=== PATIENT | female | born 1995 | race Caucasian/White ===

== ENCOUNTER → 2023-08-10 10:49 | Outpatient (CLI) | payer OTHER, SELFPAY ==
[2023-08-10 11:27] LABS: Add Manual Diff / Slide Review NO; Basophils Absolute Auto 0 /uL (0-100); Basophils Percent Auto 0.2 % (0-2); Eosinophils Absolute Auto 100 /uL (0-450); Eosinophils Percent Auto 1.5 % (2-4); Hematocrit 35.8 % (36-46); Hemoglobin 12.5 g/dL (12.0-16.0); Lymphocytes Absolute Auto 1400 /uL (1100-4500); Lymphocytes Percent Auto 19.3 % (25-40); Mean Corpuscular Hemoglobin 31.4 PG (26-34); Mean Corpuscular Volume 89.9 fL (80-100); Monocytes Absolute Auto 800 /uL (0-900); Monocytes Percent Auto 10.8 % (3-14); Neutrophils Absolute Auto 4900 /uL (1500-7000); Neutrophils Percent Auto 68.2 % (50-75); Platelet Count 332 X10^3/uL (150-400); Red Blood Cell Count 3.98 X10^6/uL (4.0-5.2); Red Cell Distribution Width 12.8 % (11.6-14.8); White Blood Cell Count 7.2 X10^3/uL (4.5-11.0)
[2023-08-10 13:05] LABS: Appearance Urine UA CLEAR; Bilirubin Urine UA NEGATIVE (NEGATIVE); Color Urine UA YELLOW; Glucose Urine UA NEGATIVE (Negative); Ketones Urine UA NEGATIVE (NEGATIVE); Leukocyte Esterase Urine UA NEGATIVE (NEGATIVE); Nitrite Urine UA NEGATIVE (Negative); Occult Blood Urine UA NEGATIVE (Negative); Protein Urine UA NEGATIVE (Negative); Urobilinogen Urine UA 0.2 E.U./dL (0.2)
[2023-08-10 13:13] LABS: pH Urine UA 6.5 (4.5-8.0)
[2023-08-10 14:40] LABS: Urine N gonorrhoeae NOT DETECTED
[2023-08-10 14:41] LABS: Urine Chlamydia NOT DETECTED
[2023-08-10 20:59] LABS: HIV 1 & 2 Ab/Ag 4th Gen Combo NEGATIVE (NEGATIVE); Hepatitis B Surface Antigen NEGATIVE s/c (NEGATIVE)
[2023-08-11 05:47] LABS: RPR Screen Non Reactive (Non Reactive)
[2023-08-11 05:58] LABS: Miscellaneous to LabCorp NATERA
[2023-08-11 08:55] LABS: Varicella IgG Antibody 594 index (Immune >165)
[2023-08-12 16:25] LABS: Hep C Virus Ab w/Reflex Quant NEGATIVE s/c (NEGATIVE)
== END ==
LOC: LAB 10:52
PROVIDERS: Referring Provider Student in an Organized Health Care Education/Training Program; Visit Provider Student in an Organized Health Care Education/Training Program
DX: Z13.79 Encounter for other screening for genetic and chromosomal anomalies (principal); Z36.0 Encounter for antenatal screening for chromosomal anomalies; Z31.438 Encounter for other genetic testing of female for procreative management; Z34.00 Encounter for supervision of normal first pregnancy, unspecified trimester; Z34.01 Encounter for supervision of normal first pregnancy, first trimester
CPT/HCPCS: 36415; 80055; 81003; 86787; 86803; 86850; 86900; 86901; 87086; 87389; 87491; 87591

== ENCOUNTER → 2023-10-20 15:09 | Outpatient (CLI) | payer OTHER, SELFPAY ==
--- NOTE | 2023-10-20 15:10 | DI.US.S_ITS ---
PROCEDURE: US OB >= 14 WEEKS FETUS INDICATIONS: ANATOMY OUTSIDE/PRIOR DATING DATA: Last menstrual period (LMP): 05/30/2023. LMP-based estimated date of delivery (RAMOS): 03/05/2024. TECHNIQUE: Real-time scanning was performed of the fetus, with image documentation and biometric measurements. COMPARISON: [facility], US, US OB < 14 WEEKS + OB TRANSVAG, 07/18/2023, 22:20. FINDINGS: General: A single living intrauterine gestation is present. Presentation: Vertex. Placenta: Placental position is anterior , without previa. Amniotic fluid index: 9.4 cm, normal range is 5-24 cm. heart rate: 152 beats per minute. Maternal cervical canal: 3.8 cm long. Normal lower limit is 2.5 cm. biometrics: Biparietal diameter: 4.9 cm, 20 weeks and 5 days Head circumference: 17.8 cm, 20 weeks and 2 days Abdominal circumference: 17.8 cm, 22 weeks and 5 days Femur length: 3.5 cm, 21 weeks and 1 day Clinically estimated gestational age: 20 weeks and 3 days Composite gestational age from present scan: 21 weeks and 2 days Estimated weight and percentile: 447 g, 97th percentile Anatomic survey: Neuro: Ventricles are non-dilated at less than 10 mm. Cisterna magna is normal at 3-11 mm. Cerebellum is normal in size and morphology. Nuchal skin fold: Not well seen Face: Nose and lips, facial profile are normal. Spine: Not well seen Heart: 4-chambered heart is present, with normal ventricular outflow tracts. Diaphragm: Diaphragm is intact. Stomach: Left-sided stomach is present. Kidneys: No hydronephrosis. Normal is less than 5 mm in 2nd trimester, less than 7 mm in 3rd trimester. Cord: 3-vessel cord has orthotopic insertion. Bladder: Normal in size. Extremities: All 4 extremities identified. IMPRESSION: Living intrauterine gestation at 20 weeks and 3 days. EFW at the 97th percentile, larger than expected. Normal BRIE. Spine and nuchal skin fold were not well seen. Other parts of the anatomic survey within normal limits. Consider short interval follow-up. Dictated by: Matt Oneal M.D. on 10/21/2023 at 11:01 Approved by: Matt Oneal M.D. on 10/21/2023 at 11:06
== END ==
PROVIDERS: Referring Provider Family Medicine; Visit Provider Family Medicine
DX: Z34.02 Encounter for supervision of normal first pregnancy, second trimester (principal); Z3A.20 20 weeks gestation of pregnancy
CPT/HCPCS: 76811

== ENCOUNTER → 2023-11-11 08:52 | Outpatient (CLI) | payer OTHER, SELFPAY ==
--- NOTE | 2023-11-11 08:54 | DI.US.S_ITS ---
PROCEDURE: US OB FOLLOW UP INDICATIONS: Excessive growth affecting management of pre OUTSIDE/PRIOR DATING DATA: Last menstrual period (LMP): May 30, 2023. LMP-based estimated date of delivery (RAMOS): March 05, 2024. TECHNIQUE: Real-time scanning was performed of the fetus, with image documentation and biometric measurements. Endovaginal scanning: Not performed COMPARISON: [facility], , OB >= 14 WEEKS FETUS, 10/20/2023, 16:17. FINDINGS: General: A single living intrauterine gestation is present. Presentation: Transverse. Placenta: Placental position is anterior , without previa. Normal >2 cm. Low lying is <2 cm to the edge. Previa covers the internal os. Amniotic fluid index: 15.4 cm, normal range is 5-24 cm. Single deepest vertical pocket is 5.7 cm. heart rate: 132 beats per minute. Maternal cervical canal: 4.9 cm long. Normal lower limit is 2.5 cm. biometrics: Biparietal diameter: 5.9 cm, 24 weeks and 1 day Head circumference: 20.9 cm, 23 weeks and 0 days Abdominal circumference: 19.9 cm, 24 weeks and 4 days Femur length: 4.2 cm, 23 weeks and 5 days Clinically estimated gestational age: 23 weeks and 4 days Composite gestational age from present scan: 23 weeks and 6 days Estimated weight and percentile: 657 g, 66th percentile Other: Not applicable. IMPRESSION: Single living intrauterine gestation with estimated sonographic gestational age of approximately 23 weeks and 6 days. Estimated weight of approximately 657 g which correlates with the 66th percentile based off gestational age. Normal interval growth has occurred. We strive to produce accurate, complete, and clear reports of imaging services. To assist us in improving patient care, this report was composed using standard report templates and voice recognition software. Therefore, it may contain abnormal punctuation, insertions and/or omissions. Occasional wrong-word or sound-alike substitutions may occur. Though we review the report and make efforts to correct it, we do recommend that the report be read carefully in proper context to recognize any text inaccuracies. Dictated by: Franklin Fajardo M.D. on 11/11/2023 at 11:13 Approved by: Franklin Fajardo M.D. on 11/11/2023 at 11:17
== END ==
LOC: US 08:53
PROVIDERS: Referring Provider Student in an Organized Health Care Education/Training Program; Visit Provider Student in an Organized Health Care Education/Training Program
DX: Z3A.23 23 weeks gestation of pregnancy; O36.62X0 Maternal care for excessive fetal growth, second trimester, not applicable or unspecified
CPT/HCPCS: 76815

== ENCOUNTER → 2023-12-01 11:08 | Outpatient (CLI) | payer OTHER, SELFPAY ==
[2023-12-01 13:28] LABS: Hematocrit 35.4 % (36-46); Hemoglobin 12.5 g/dL (12.0-16.0)
[2023-12-01 13:52] LABS: GTT (PREG) 1 Hour PP 50gm Dose 66 mg/dL (76-139)
== END ==
LOC: LAB 11:09
PROVIDERS: Referring Provider Student in an Organized Health Care Education/Training Program; Visit Provider Student in an Organized Health Care Education/Training Program
DX: Z34.92 Encounter for supervision of normal pregnancy, unspecified, second trimester (principal); Z3A.26 26 weeks gestation of pregnancy
CPT/HCPCS: 36415; 82950; 85014; 85018

== ENCOUNTER → 2024-01-19 15:29 | Outpatient (CLI) | payer OTHER, SELFPAY ==
--- NOTE | 2024-01-19 15:30 | DI.US.S_ITS ---
PROCEDURE: US OB >= 14 WEEKS FETUS INDICATIONS: Growth US OUTSIDE/PRIOR DATING DATA: Last menstrual period (LMP): 05/30/2023. LMP-based estimated date of delivery (RAMOS): 03/05/2024. First dating scan (date and location): Unknown. Estimated date of delivery (RAMOS) from first dating scan: Unknown. The calculations are made using the working RAMOS of 02/28/2024. TECHNIQUE: Real-time scanning was performed of the fetus, with image documentation and biometric measurements. Endovaginal scanning: No COMPARISON: [facility], , US OB >= 14 WEEKS FETUS, 10/20/2023, 16:17. FINDINGS: General: A single living intrauterine gestation is present. Presentation: Vertex. Placenta: Placental position is anterior , without previa. Amniotic fluid index: 15.0 cm, normal range is 5-24 cm. Single deepest vertical pocket is 5.7 cm. heart rate: 128 beats per minute. Maternal cervical canal: 4.5 cm long. Normal lower limit is 2.5 cm. biometrics: Biparietal diameter: 8.5 cm, 34 week 1 day Head circumference: 31.8 cm, 35 week 6 day Abdominal circumference: 31.3 cm, 38 week 2 day Femur length: 6.7 cm, 34 week 3 day Clinically estimated gestational age: 33 week 3 day Composite gestational age from present scan: 35 week 5 day Anatomic survey: Neuro: Ventricles are non-dilated at less than 10 mm. Cisterna magna is normal at 3-11 mm. Cerebellum is normal in size and morphology. Nuchal skin fold: Normal at less than 6 mm between 14-21 weeks gestational age. Face: Nose and lips, facial profile are normal. Spine: No evidence for spina bifida. Heart: 4-chambered heart is present, with normal ventricular outflow tracts. Diaphragm: Diaphragm is intact. Stomach: Left-sided stomach is present. Kidneys: No hydronephrosis. Normal is less than 5 mm in 2nd trimester, less than 7 mm in 3rd trimester. Cord: 3-vessel cord has orthotopic insertion. Bladder: Normal in size. Extremities: All 4 extremities identified. IMPRESSION: Single live intrauterine consistent with 35 week 5 day gestation by current ultrasound Estimated weight 2973 g, 99th percentile Approved by: Joao Moore M.D. on 01/20/2024 at 19:49
== END ==
LOC: US 15:30
PROVIDERS: Referring Provider Student in an Organized Health Care Education/Training Program; Visit Provider Student in an Organized Health Care Education/Training Program
DX: O26.13 Low weight gain in pregnancy, third trimester (principal); Z3A.35 35 weeks gestation of pregnancy
CPT/HCPCS: 76811

== ENCOUNTER → 2024-02-09 13:46 | Outpatient (CLI) | payer OTHER, SELFPAY ==
--- NOTE | 2024-02-09 13:47 | DI.US.S_ITS ---
PROCEDURE: US OB >= 14 WEEKS FETUS INDICATIONS: GROWTH US OUTSIDE/PRIOR DATING DATA: Last menstrual period (LMP): 05/30/2023. LMP-based estimated date of delivery (RAMOS): 03/05/2024. TECHNIQUE: Real-time scanning was performed of the fetus, with image documentation and biometric measurements. Endovaginal scanning: Not performed COMPARISON: [facility], US, US OB >= 14 WEEKS FETUS, 01/19/2024, 16:22. FINDINGS: General: A single living intrauterine gestation is present. Presentation: Vertex. Placenta: Placental position is anterior , without previa. Amniotic fluid index: 19.4 cm, normal range is 5-24 cm. Single deepest vertical pocket is 8.3 cm. heart rate: 150 beats per minute. Maternal cervical canal: 4.5 cm long. Normal lower limit is 2.5 cm. biometrics: Biparietal diameter: 8.8 centimeters, 35 weeks 4 days Head circumference: 31.4 centimeters, 35 weeks 1 day Abdominal circumference: 33.6 centimeters, 37 weeks 4 days Femur length: 7.1 centimeters, 36 weeks 3 days Clinically estimated gestational age: 36 weeks 3 days Composite gestational age from present scan: 36 weeks 1 day Estimated weight and percentile: 3022 grams, sixty-two percentile IMPRESSION: Single living intrauterine at thirty-six weeks 3 days, RAMOS 03/05/2024. Estimated weight of 3022 grams, 62 percentile. We strive to produce accurate, complete, and clear reports of imaging services. To assist us in improving patient care, this report was composed using standard report templates and voice recognition software. Therefore, it may contain abnormal punctuation, insertions and/or omissions. Occasional wrong-word or sound-alike substitutions may occur. Though we review the report and make efforts to correct it, we do recommend that the report be read carefully in proper context to recognize any text inaccuracies. Dictated by: Aly Mckeon M.D. on 02/10/2024 at 10:43 Approved by: Aly Mckeon M.D. on 02/10/2024 at 10:46
== END ==
PROVIDERS: Referring Provider Student in an Organized Health Care Education/Training Program; Visit Provider Student in an Organized Health Care Education/Training Program
DX: Z34.93 Encounter for supervision of normal pregnancy, unspecified, third trimester (principal); Z3A.36 36 weeks gestation of pregnancy
CPT/HCPCS: 76811

== ENCOUNTER → 2024-02-10 15:46 | Outpatient (CLI) | payer OTHER, SELFPAY ==
[2024-02-11 14:52] LABS: Strep Grp B PCR NEG for Grp B Strep
== END ==
PROVIDERS: Visit Provider Student in an Organized Health Care Education/Training Program
DX: Z34.90 Encounter for supervision of normal pregnancy, unspecified, unspecified trimester (principal); Z3A.36 36 weeks gestation of pregnancy
CPT/HCPCS: 87653

== ENCOUNTER 2024-02-27 07:59 | Outpatient (CLI) | payer OTHER, SELFPAY | END 2024-02-27 08:33 | disposition home or self-care (01) | LOC: OB 02-28 13:37 | PROVIDERS: Referring Provider Obstetrics & Gynecology; Visit Provider Obstetrics & Gynecology | DX: O36.8130 Decreased fetal movements, third trimester, not applicable or unspecified (principal); Z3A.39 39 weeks gestation of pregnancy | CPT/HCPCS: 59025; G0378; G0379 ==

== ENCOUNTER 2024-03-07 07:35 | Inpatient (IN) | payer OTHER, SELFPAY ==
--- NOTE | 2024-03-07 08:14 | PM.OBHP.IH.1 ---
OB HPI Date/Time Date of admission: 03/07/24 Date Patient Seen: 03/07/24 Time Patient Seen: 07:45 History of Present Condition Chief complaint: labor RAMOS Calculator Estimated Delivery Date Method Current WG Current Estimate 03/05/24 LMP (Certain) 40w 2d : 1 Para: 0 Narrative: Patient began having painful contractions at 3am. Water broke around 7am. Nico every 3-5 minutes. care: good care Dating criteria OB: LMP confirmed by 1st trimester US Ultrasounds: normal 1st trimester US and normal mid trimester US Obstetrical complications: none Medical complications OB: none Preadmission Labs Last OB Lab Results: Blood Type O Positive 08/10/23 11:03 Antibody Screen Negative 08/10/23 11:03 Hct 35.4 % (36-46) L 12/01/23 12:18 Hgb 12.5 g/dL (12.0-16.0) 12/01/23 12:18 Hep Bs Antigen Negative s/c (NEGATIVE) 08/10/23 11:03 Hepatitis C Antibody Negative s/c (NEGATIVE) 08/10/23 11:03 Rubella Antibody IU/mL (>15) 08/10/23 11:03 VZV IgG Antibody 594 index (Immune >165) 08/10/23 11:03 Glucose 1 Hr 50 gm 66 mg/dL (76-139) L 12/01/23 12:18 Group B Strep (PCR) Neg for grp b strep 02/10/24 16:30 Glucose Tolerance Testin hr Genetic Screens: Cell-free DNA: Normal Evaluation Evaluation Baseline heart rate: 135 Variability: Average (6-10) monitor accelerations: Present Monitor Decelerations: Absent Contraction Frequency (minutes): 3 Uterine Contraction Intensity: Moderate Category of Tracing: Reactive Status: Category l Dilation (cm): 2 Effacement (%): 80 Dilation: 1-2 cm Effacement: >/=80% station: -3 Non-invasive Membranes Rupture Test: positive [facility] 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/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) Wrist fracture Surgical History (Updated 07/06/23 @ 11:23 by Daisy Hardin RN) No pertinent past surgical history Family History (Updated 08/07/23 @ 21:12 by Rosie Lomeli) Grandfather Lung cancer Grandmother Lung cancer Smoker Grandmother Osteoporosis Stroke Social History marital status: number of children: 0 household members: spouse lives independently: Yes caregiver/support person: Yes housing: house pets and animals: Yes (2 cats, aware of precautions) education level: college occupational status: employed current occupational exposures/hazards: No special mana needs: No travel history: recent seatbelt use: always helmet use: Yes water heater temp set < 120 deg: Yes working smoke detector in home: Yes fire extinguisher in home: Yes carbon monox detector in home: Yes firearms in home: Yes firearms unloaded and locked: Yes do you feel safe at home: Yes Smoking Status: Never smoker second hand exposure: No alcohol intake: former substance use type: does not use during the past year weight has: remained stable well-balanced diet: daily or most days daily servings fruits/ve-4 caffeine: Yes (AM cup coffee) Type(s) of exercise: aerobic, weight lifting and running frequency: 3-4 times per week Meds Home Medications and Allergies Home Medications Medication Instructions Recorded Confirmed Type vitamin-ferrous sulfate tab PO 07/06/23 03/02/24 History 27 mg iron-folic acid 0.8 mg tablet doxylamine succinate 25 mg tablet 25 mg PO BEDTIME PRN sleep #30 tabs 09/01/23 03/02/24 Rx (Unisom (doxylamine)) Allergies Allergy/AdvReac Type Severity Reaction Status Date / Time No Known Drug Allergies Allergy Unverified 03/02/24 16:28 Review of Systems Review of Systems ROS: Yes All systems reviewed with the patient and are negative except as otherwise documented OB Exam Vital signs Blood Pressure: 123/85 Pulse Rate: 98 Temperature: 36.3 F Assessment and Plan Assessment and Plan Assessment and Plan narrative: 28 yo G1 here at 40w2d presenting with painful contractions and rupture of membranes. Amnisure positive. Contractions every 3 minutes. 2/80/-3. GBS neg. Uncomplicated . -admit for labor -anticipate Time-Based Coding :: 30 spent with patient and on the chart (including review of chart, obtaining history, exam, reviewing outside data, placing orders, documenting exam and treatment plan, and counseling patient) on 03/07.
[2024-03-07 08:22] VITALS: BP 123/85; PULSE 98; TEMP 2.4; TEMP 36.3
[2024-03-07 10:06] LABS: Add Manual Diff / Slide Review NO; Basophils Absolute Auto 100 /uL (0-100); Basophils Percent Auto 0.5 % (0-2); Eosinophils Absolute Auto 100 /uL (0-450); Eosinophils Percent Auto 0.5 % (2-4); Hematocrit 36.3 % (36-46); Hemoglobin 12.6 g/dL (12.0-16.0); Lymphocytes Absolute Auto 1300 /uL (1100-4500); Lymphocytes Percent Auto 11.4 % (25-40); Mean Corpuscular HGB Conc 34.6 % (30-36); Mean Corpuscular Hemoglobin 31.9 PG (26-34); Mean Corpuscular Volume 92.1 fL (80-100); Monocytes Absolute Auto 900 /uL (0-900); Monocytes Percent Auto 7.6 % (3-14); Neutrophils Absolute Auto 9000 /uL (1500-7000); Platelet Count 249 X10^3/uL (150-400); Red Blood Cell Count 3.94 X10^6/uL (4.0-5.2); Red Cell Distribution Width 13.4 % (11.6-14.8); White Blood Cell Count 11.3 X10^3/uL (4.5-11.0)
[2024-03-07 11:24] VITALS: BP 123/85
[2024-03-07] MEDS: CALCIUM CARBONATE 500 MG TAB 1000 MG PO ×2 (13:28→17:39)
[2024-03-07] MEDS: LACTATED RINGERS 1,000 ML 100 ML IV ×2 (15:14→16:04)
--- NOTE | 2024-03-07 16:26 | P.PCN_ITS ---
Regional Block Pre-procedure Procedure: Continuous Lumbar Epidural for L&D (with dural puncture and intrathecal injection) Attending OB provider: Melinda Lu PM/ROS narrative: 28yo at 40 weeks 2 days in labor with ruptured membranes requesting epidura l. See anesthesia pre-evaluation for further details. ASA Class: II Labs: Hct 36.3 % (36-46) 03/07/24 09:45 Plt Count 249 X10^3/uL (150-400) 03/07/24 09:45 Medications: Current Medications Generic Name Dose Route Start Last Admin Trade Name Freq PRN Reason Stop Dose Admin Calcium Carbonate 1,000 mg 03/07/24 13:04 03/07/24 13:28 Calcium Carbonate 500 Mg Tab PO 1,000 mg Q4HR PRN Administration Dyspepsia Carboprost Tromethamine 250 mcg 03/07/24 08:09 Carboprost 250 Mcg/Ml Ampul IM Q90M PRN Bleeding Diphenhydramine HCl 25 mg 03/07/24 16:24 Diphenhydramine 50 Mg/Ml Vial IV Q10M PRN Pruritis Ephedrine Sulfate 10 mg 03/07/24 16:24 Ephedrine 50 Mg/Ml Vial IV Q5M PRN Blood pressure decrease more than 20% of baseline. Fentanyl 50 mcg 03/07/24 08:09 Fentanyl 100 Mcg/2 Ml Inj IV Q1H PRN Pain, Moderate (4-6) Lactated Ringer's 1,000 mls @ 100 mls/hr 03/07/24 08:15 03/07/24 16:04 Lactated Ringers IV 03/07/24 18:14 100 mls/hr CONT PRIYANKA Administration Oxytocin/Lactated Ringer's 30 unit in 500 mls @ 200 mls/hr 03/07/24 08:09 Oxytocin Premix IV CONT PRN Bleeding Protocol Tranexamic Acid 1,000 mg/ 100 mls @ 600 mls/hr 03/07/24 08:09 Sodium Chloride IV NOW PRN Bleeding FENT 2MCG/ML BUPIV 0.125% EPI 200 mcg in 100 mls @ 6 mls/hr 03/07/24 16:30 Fentanyl/Bupiv/Ns 2mcg/Ml - 0.125% EPIDURAL CONT PRIYANKA Lidocaine HCl 20 ml 03/07/24 08:09 Lidocaine 1% 20 Ml INJ INTRA-OP PRN Post Delivery Methylergonovine Maleate 0.2 mg 03/07/24 08:09 Methylergonovine 0.2 Mg Tablet PO Q6HR PRN Heavy Bleeding Methylergonovine Maleate 0.2 mg 03/07/24 08:09 Methylergonovine 0.2 Mg/Ml Vial IM NOW PRN Bleeding Mineral Oil 30 ml 03/07/24 08:09 Mineral Oil 30 Ml Udc TOP PRN PRN Version Misoprostol 800 mcg 03/07/24 08:09 Misoprostol 200 Mcg Tablet MD NOW PRN Bleeding Misoprostol 400 mcg 03/07/24 08:09 Misoprostol 200 Mcg Tablet SL NOW PRN Bleeding Nalbuphine HCl 2.5 mg 03/07/24 16:24 Nalbuphine 20 Mg/Ml Ampul IV Q10M PRN Pruritis Naloxone HCl 0.2 mg 03/07/24 08:09 Naloxone 0.4 Mg/Ml Vial IV Q2MIN PRN Opiate Reversal Ondansetron HCl 4 mg 03/07/24 08:09 Ondansetron 4 Mg/2 Ml Inj IV Q4HR PRN Nausea And Vomiting Oxytocin 10 unit 03/07/24 08:09 Oxytocin 10 Unit/Ml Vial IM NOW PRN Bleeding Allergies: Allergies Allergy/AdvReac Type Severity Reaction Status Date / Time No Known Drug Allergies Allergy Unverified 03/02/24 16:28 Procedure Insertion date: 03/07/24 Insertion time: 16:05 Prep/Local: 1% lidocaine (Chloraprep) Interspace: L3-4 Patient position: sitting Needle: 18 gauge Hustead (27g 5 Pencan for dural puncture) Loss of resistance with: saline PATRICIA at (cm): 5 Catheter placed at SKIN (cm): 14 Catheter in SPACE (cm): 9 Insertion: Yes CSF, No Blood, Yes Paresthesia with insertion, No Paresthesia with injection and No Test dose reaction Initial Medications TEST DOSE time: 16:06 TEST DOSE: 1.5% lidocaine with epinephrine 1:200k (mL): 3 BOLUS DOSE time: 16:07 BOLUS DOSE (mL): 2 BOLUS DOSE med: other (2 ml same as test dose. Intrathecal injection at 16:05 of 0.75% bupivacaine in dextrose, 0.4 ml) Infusion INFUSION: 0.125% bupivacaine and with fentanyl 2 mcg/mL Initial rate (mL/hr): 8 Subsequent interventions: Epidural infusion pump started at 16:18. Pt reports pain down from 8-9/10 to 2/10. Able to move BLE. 00:25 - Epidural infusion rate increased from 8 to 11 ml/hr. Pt doing well. JJ Post-procedure Anesthesia date START: 03/07/24 Anesthesia time START: 15:46 Anesthesia date END: 03/08/24 Anesthesia time END: 04:38 Post-procedure Anesthesia Assessment: Yes CV function: HR/BP stable, Yes Resp function: RR/sat/airway adequate, Yes Post-op hydration adequate, Yes Pain control adequate, Yes Nausea & vomiting absent, Yes Temperature > 36 C, Yes Mental status appropriate and No Anesthesia complications
[2024-03-07] MEDS: ONDANSETRON 4 MG/2 ML INJ IV (17:41)
[2024-03-07] MEDS: OXYTOCIN PREMIX 30 UNIT/500 ML PLAST..BAG 200 UNIT IV (17:42)
--- NOTE | 2024-03-07 17:44 | PM.OBPNLAB ---
Date/Time Date Patient Seen: 03/07/24 Time Patient Seen: 17:00 Pain Control Pain control: epidural Pelvic Exam Dilation (cm): 6 Effacement (%): 90 station: -1 Amniotic membrane status: Ruptured Contractions Date/Time contractions began: 03/07 3:30 AM Contractions on admission: regular Monitor mode: External Contraction pattern: Irregular Contraction intensity: Moderate Status status: Category l Heart Rate Baseline: 145 Monitor Accelerations: Present Monitor Decelerations: Absent Monitor Variability: Moderate Assessment and Plan Assessment: active labor Plan: begin patient augmentation Comments: Contractions have spaced, will begin augmentation with pitocin. Patient comfortable with epidural.
[2024-03-07] MEDS: FAMOTIDINE 20 MG/2 ML VIAL IV (18:06)
--- NOTE | 2024-03-07 19:28 | PM.OBPNLAB ---
Date/Time Date Patient Seen: 03/07/24 Time Patient Seen: 19:00 Pain Control Pain control: tolerating well and epidural Pelvic Exam Dilation (cm): 7 Effacement (%): 90 station: -1 Amniotic membrane status: Ruptured Contractions Monitor mode: External Pitocin rate (mU/min): 7 Contraction pattern: Irregular Contraction intensity: Moderate Status status: Category l Heart Rate Baseline: 145 Monitor Accelerations: Present Monitor Decelerations: Absent Monitor Variability: Moderate Assessment and Plan Assessment: active labor Plan: continuous present management Comments: -AROM of forebag, 8 cm/90/-1 -Anticipate vaginal delivery
[2024-03-07] MEDS: FENT 2MCG/ML BUPIV 0.125% EPI 200 MCG/100 ML PLAST..BAG 6 MCG EPIDURAL (23:59)
[2024-03-08] MEDS: LACTATED RINGERS 1,000 ML 100 ML IV
[2024-03-08] MEDS: diphenhydrAMINE 50 MG/ML VIAL IV (01:56)
--- NOTE | 2024-03-08 03:08 | PM.OBPNLAB ---
Date/Time Date Patient Seen: 03/08/24 Time Patient Seen: 02:15 Pain Control Pain control: tolerating well and epidural Pelvic Exam Dilation (cm): 10 Effacement (%): 100 station: 0 Amniotic membrane status: Ruptured Contractions Monitor mode: External Contraction pattern: Irregular Contraction intensity: Moderate Status status: Category l Heart Rate Baseline: 145 Monitor Accelerations: Present Monitor Decelerations: Absent Assessment and Plan Assessment: active labor Plan: continuous present management Comments: Patient at 9cm since 8:15pm 03/08, slow progression to complete. Position changes successful. IV benadryl given for cervical swelling. Patient with SOB following IV benadryl, baby with deceleration 4-5 minutes - hands and knees with oxygenation improved tracing. Found to be complete and 0 station. -pushing effectively for past 45 minutes, now at +1 station -pitocin at 4 -anticipate
--- NOTE | 2024-03-08 04:53 | PM.OBPRVD ---
Events: Labor Augmentation Labor & Delivery Delivery date: 03/08/24 Intrapartal Events: Deceleration (intermittent with pushing) Cervical ripening method: none Induction method: none Delivery augmentation: pitocin Delivery monitor: external FHT Route of delivery: Episiotomy description: None L&D Laceration Description: None Estimated blood loss (mL): 250 Anesthesia Type: Epidural Narrative: 28 yo G1 at 40w3d with SROM and spontaneous labor. Pushing over 2.5 hours with intermittent decelerations with pushing. With excellent pushing efforts, was brought to perineum in OA position. Head delivered. Right shoulder was noted to be under pubic bone. Patient instructed not to push. Subrapubic pressure provided by nursing staff with delivery of anterior right shoulder. Baby initially with low tone and poor color, however appropriate response to stimulation by 1 minute of life. Terminal meconium noted. Pitocin started. Placenta delivered with gentle traction and external fundal massage. No tears requiring suture repair noted. Bleeding minimal. Fundus firm. Plan for aftercare: Routine care
[2024-03-08] MEDS: IBUPROFEN 600 MG TABLET PO ×2 (07:56→15:22)
[2024-03-08] MEDS: DERMOPLAST SPRAY 20% 60 ML 1 SPRAY TOP (07:56)
[2024-03-08] MEDS: WITCH HAZEL/GLYCERIN PADS 1 EACH TOP (07:56)
[2024-03-08] MEDS: LANOLIN OINT 7 GM 1 APPLIC TOP (07:56)
[2024-03-09] MEDS: IBUPROFEN 600 MG TABLET PO ×2 (00:46→11:05)
--- NOTE | 2024-03-09 08:32 | P.DS_ITS ---
Discharge Providers Provider Date of admission: 03/07/24 07:35 Discharge Date: 03/09/24 Primary care physician: Doctor Johan MD Consults: 03/07/24 08:10 Consult to Anesthesiology Urgent Comment: Consulting Provider: Anesthesiologist Reason for consultation: Epidural 03/09/24 04:52 Consult to Custom Framing Specialist Routine Comment: Discharge provider: Melinda Lu MD Summary Hospital Course Date Patient Seen: 03/09/24 Time Patient Seen: 07:45 Diagnoses: term , spontaneous vaginal delivery Hospital Course: 28 yo G1 now P1 who came in for SROM and labor delivered at 40w3d with . Shoulder dystocia relieved with Lexis and suprapubic pressure. Baby recovered well. No lacerations. Recovering well. Minimal pain. Working on . Bleeding like a period. Peripartum Data Infant Delivery Method: Natural Vaginal Laceration Description: None complications: none Status at Discharge Cognitive/behavioral status at discharge: oriented Functional status at discharge: independent ambulation Overall status at discharge: patient is back to baseline Time Spent with Patient Time attestation: Total time spent providing and/or coordinating discharge services: 35 min Time spent: Greater than 30 minutes Objective Labs 03/07/24 09:45 Exam Narrative Exam Narrative: NAD, breathing easily. Fundus firm, bleeding appropriate. Discharge Plan Discharge Plan Patient Disposition: Home Discharge orders & Medications Prescriptions: New acetaminophen 325 mg Tablet 650 mg PO Q6HR PRN (Reason: Pain, Mild (1-3)) Qty: 60 0RF ibuprofen 600 mg Tablet 600 mg PO Q6HR PRN (Reason: Pain, Mild (1-3)) 30 Days Qty: 60 0RF Continued vit-ferrous sulfat-FA 27 mg iron- 0.8 mg tablet PO Discontinued Unisom (doxylamine) 25 mg tablet 25 mg PO BEDTIME PRN (Reason: sleep) Qty: 30 0RF Follow up/Referrals: Melinda Lu MD [Physician] - 6 Weeks ( will make your 6 wk follow up appointment at your baby's wellness check on 03/13.) Visit Report/Discharge Packet Stand Alone Forms: Discharge: Care, Patient Portal/API, Stroke Signs & Symptoms Discharge Data Primary Care Provider: Doctor Johan
[2024-03-09] MEDS: DOCUSATE 100 MG CAPSULE PO (09:18)
[2024-03-09 09:20] VITALS: BP 111/74; PULSE 78; RESP 16; TEMP 36.3
== END 2024-03-09 11:35 | disposition home or self-care (01) | DRG 807 ==
PROVIDERS: Admitting Provider Student in an Organized Health Care Education/Training Program; Referring Provider Student in an Organized Health Care Education/Training Program; Visit Provider Student in an Organized Health Care Education/Training Program
DX: O42.02 Full-term premature rupture of membranes, onset of labor within 24 hours of rupture (principal); Z37.0 Single live birth; O76 Abnormality in fetal heart rate and rhythm complicating labor and delivery; Z3A.40 40 weeks gestation of pregnancy
CPT/HCPCS: 36415; 59025; 59050; 84112; 85025; 86850; 86900; 86901; G0378; G0379; J1200; J2405; J2590